=== PATIENT | male | born 1990 | race Caucasian/White ===

== ENCOUNTER 2019-12-12 08:17 | Emergency (ER) | payer OTHER ==
[~2019-12-12] VITALS: Ht 172.7 cm; Wt 90.7 kg
[~2019-12-12 08:17] MED LIST: BACTRIM DS TAB1 EACH; NAPROSYN500 M1 PO; NORCO 5-325 TA1 EACH PO; ONDANSETRON HCL4 M2 PO; ZPAK PO
[2019-12-12] MEDS ORDERED: DIPHENHIST50 MG PO (08:37)
[2019-12-12] MEDS ORDERED: PREDNISONE 10 M10 M1 PO (08:37)
[2019-12-12 09:24] VITALS: BP 129/92
== END 2019-12-12 09:24 | disposition home or self-care (01) ==
LOC: M.ERS 08:17
DX: L50.9 Urticaria, unspecified (principal); T78.40XA Allergy, unspecified, initial encounter; I10 Essential (primary) hypertension; G43.909 Migraine, unspecified, not intractable, without status migrainosus; Z88.0 Allergy status to penicillin; Z88.1 Allergy status to other antibiotic agents; Z87.891 Personal history of nicotine dependence; X58.XXXA Exposure to other specified factors, initial encounter

== ENCOUNTER 2021-01-28 05:33 | Emergency (ER) | payer OTHER ==
[~2021-01-28] VITALS: Ht 172.7 cm; Wt 93.9 kg
[~2021-01-28 05:33] MED LIST changes: +DIPHENHIST50 MG PO; +PREDNISONE 10 M10 M1 PO
[2021-01-28] MEDS ORDERED: TRIAMCINOLONE A80 G2 TOP (06:21)
[2021-01-28] MEDS ORDERED: PREDNISONE50 MG PO (06:21)
[2021-01-28 07:00] VITALS: BP 154/85
== END 2021-01-28 07:00 | disposition home or self-care (01) ==
LOC: M.ERS 05:33
DX: T78.49XA Other allergy, initial encounter (principal); L50.9 Urticaria, unspecified; I10 Essential (primary) hypertension; G43.909 Migraine, unspecified, not intractable, without status migrainosus; Z98.890 Other specified postprocedural states; Z87.891 Personal history of nicotine dependence; Z88.0 Allergy status to penicillin; X58.XXXA Exposure to other specified factors, initial encounter